=== PATIENT | male | born 1995 | race Caucasian/White ===

== ENCOUNTER 2017-10-28 06:24 | Day surgery (SDC) | payer OTHER ==
[2017-10-27 13:13] VITALS: BMI 27.2
--- NOTE | 2017-10-27 17:14 | HP ---
DATE OF ADMISSION: 10/28/2017 DATE OF SURGERY: 10/28/2017 ADMISSION DIAGNOSIS: Chronic sinusitis. HISTORY OF PRESENT ILLNESS: This 22-year-old male has had history of chronic sinus symptoms which have failed to improve with appropriate medical therapy. He does report history of nasal congestion with some mouth breathing. He does also report childhood nasal trauma. He has headache and postnasal drainage as well as purulent nasal drainage and anosmia. He has not responded well to medical management. CT scan demonstrates an opacified and expanded right maxillary sinus which protrudes into the right nasal cavity, as well as some ethmoid disease. He is now admitted for endoscopic sinus surgery to address these problems. PAST MEDICAL HISTORY: Primary medical doctor is Dr. Rula Franklin. There are no previous operations and no previous general anesthesia. Bleeding history is negative. FAMILY HISTORY: Negative for bleeding or anesthesia problems. Patient has hair thinning and borderline blood pressure elevation. There is also history of nasal allergies. ALLERGIES TO MEDICATIONS: None. He does not smoke. There is a history of second-hand smoke exposure. PHYSICAL EXAMINATION: General: Patient is a well-developed male in no distress. HEENT: Head is normal. Eyes are clear. Ears are unremarkable. The nasal cavities show minimal septal deviation. There is mucosal edema and narrowing of the middle meatus on the right side as well as edema of the turbinate. DATA: Preoperative labs are pending. There is no anemia, but the MCV is slightly low, PCP suspects probable thalassemia. CT scan of the paranasal sinuses is abnormal with significant right maxillary sinus disease. IMPRESSION: Chronic maxillary and ethmoid sinusitis. PLAN: Endoscopic sinus surgery. INFORMED CONSENT: Patient and his father understand the indications, alternatives, nature, risks, and benefits of proposed surgery. Potential complications including, but not limited to, anesthesia, bleeding, infection, recurrence, numbness, reduced smell sense, eye injury or brain injury discussed in detail. He understands and accepts these risks and wishes to proceed with surgery. Questions are answered fully. MANDY ONEILL M.D. KENIA/[id number] MTDD
[~2017-10-28 06:24] MED LIST: ceFAZolin SODIUM 1 GM VIAL IVPB ONE
[2017-10-28] MEDS ORDERED: fentaNYL CITRATE 250 MCG/5 ML VIAL ONE (07:04)
[2017-10-28] MEDS ORDERED: SUCCINYLCHOLINE CHLORIDE 200 MG/10 ML VIAL ONE (07:04)
[2017-10-28] MEDS ORDERED: ROCURONIUM BROMIDE 50 MG/5 ML VIAL ONE (07:04)
[2017-10-28] MEDS ORDERED: MIDAZOLAM HCL 2 MG/2 ML SINGLE DOSE VIAL ONE (07:04)
[2017-10-28] MEDS ORDERED: LIDOCAINE HCL/PF 2% SDV 5ML VIAL ONE (07:04)
[2017-10-28] MEDS ORDERED: DEXAMETHASONE SOD PHOSPHATE 4 MG/1 ML VIAL ONE (07:04)
[2017-10-28] MEDS ORDERED: PROPOFOL 20 ML ONE (07:04)
[2017-10-28] MEDS ORDERED: COCAINE HCL 4% TOPICAL SOLUTION 4 ML BOTTLE TP ONE ×3 (07:10→09:10)
--- NOTE | 2017-10-28 07:50 | HP ---
History & Physical Update - History History: No Change - Physical Physical: No Change - Assessment Assessment: No Change - Plan Plan: No Change
[2017-10-28] MEDS ORDERED: GLYCOPYRROLATE 0.2 MG/1 ML VIAL ONE (09:11)
[2017-10-28] MEDS ORDERED: NEOSTIGMINE METHYLSULFATE 0.5 MG/ML - 10 ML MDV ONE (09:11)
[2017-10-28] MEDS ORDERED: TRIMETHOBENZAMIDE HCL 200MG/2ML INJ IM PRN (09:25)
[2017-10-28] MEDS ORDERED: oxyCODONE HCL 5 MG TABLET PO PRN ×2 (09:25→10:46)
[2017-10-28] MEDS ORDERED: ACETAMINOPHEN 325 MG TABLET (FP) PO PRN (09:25)
--- NOTE | 2017-10-28 09:25 | OP ---
Operative Note - Note: Operative Date: 10/28/17 ([id number]) Pre-Operative Diagnosis: chronic maxillary sinusitis Operation: right endoscopic ethmoidectomy, anterior,. right endoscopic maxilary antrostomy with removal of tissue,. image guidance Findings: markedly expanded right maxillary sinus bulging into nasal cavity with significant mucopus Implants: none Post-Operative Diagnosis: Same as Pre-op Surgeon: Declan Barron Anesthesiologist/RIPSAW GRADER: Sergei Rodriguez Anesthesia: General Specimens Removed: right maxillary and ethmoid sinus Estimated Blood Loss (mls): 15 Blood Volume Replaced (mls): 0 Operative Report Dictated: Yes
[2017-10-28] MEDS ORDERED: LACTATED RINGERS SOLUTION 1,000 ML IV SCH (09:30)
[2017-10-28] MEDS ORDERED: ONDANSETRON 4 MG/2 ML VIAL IVPUSH ONE (10:15)
[2017-10-28] MEDS ORDERED: PROMETHAZINE HCL 25 MG/1 ML VIAL IVPUSH ONE ×2 (10:30→11:51)
[2017-10-28] MEDS ORDERED: ONDANSETRON 4 MG/2 ML VIAL IVPUSH PRN (10:46)
[2017-10-28] MEDS ORDERED: ONDANSETRON 4 MG/2 ML VIAL ONE (10:59)
[2017-10-28] MEDS ORDERED: PROMETHAZINE HCL 25 MG/1 ML VIAL ONE (11:28)
[2017-10-28 12:43] VITALS: TEMP 98.4
--- NOTE | 2017-10-28 12:52 | OP ---
DATE OF OPERATION: 10/28/2017 PREOPERATIVE DIAGNOSIS: Chronic maxillary sinusitis with expansion of sinus and nasal obstruction. POSTOPERATIVE DIAGNOSIS: Chronic maxillary sinusitis with expansion of sinus and nasal obstruction. PROCEDURE PERFORMED: Right endoscopic ethmoidectomy, anterior right endoscopic maxillary antrostomy with removal of tissue, image guidance. SURGEON: Mandy Barron MD ANESTHESIOLOGIST: Sergei Rodriguez CRNA ANESTHESIA: General via endotracheal tube. INDICATIONS: This 22-year-old male had long-standing nasal obstructive symptoms with discomfort. He had failed to improve with appropriate medical therapy. CT scan demonstrates a completely opacified right maxillary sinus with expansion medially into the nasal cavity. He is now brought to surgery for treatment. FINDINGS: Obstruction of the right nasal cavity by expanded medial wall of maxillary sinus, thickened and inflamed mucosa, significant pus and mucus within the maxillary sinus with diseased tissue. DESCRIPTION OF PROCEDURE: The patient was brought to the operating room and placed on the operating table in the supine position. General endotracheal anesthesia was induced to a satisfactory level. He was prepped and draped in the usual fashion for surgery. Cocaine 4% was placed within the right nasal cavities. The Plored image guidance system was utilized with the patient's CT scan data. He was registered, and the system was used intermittently throughout the case to identify anatomic landmarks and guide dissection. The pledgets were removed. A nasal endoscopy was performed with a 0-degree telescope. Significant bulging of the lateral wall of the nasal cavity was identified. There was also diffusely inflamed mucosa. Lidocaine with epinephrine 1:200,000 was infiltrated into the lateral nasal wall and the middle meatus, as well as the uncinate process. Additional cocaine 4% was placed for vasoconstriction. Palpation demonstrated very soft tissue in the area of bulging. Mucus and pus emanated from the maxillary ostium out of the middle meatus with injection and palpation. An area was cauterized to minimize bleeding and then incised with a sickle knife and opened with the up-biting forceps. Significant mucopus was encountered. Cultures were sent to Microbiology. The medial wall was then excised with the Xomed microdebrider. In addition, the uncinate process was removed and a limited anterior ethmoidectomy was performed in order to clear the area around the natural ostium. The middle turbinate was red and inflamed, but was left undisturbed. The inferior of the maxillary sinus was then visualized with the 70-degree scope. Significant pus was encountered. This was suctioned fully. Giraffe forceps were used to remove diseased tissue from the posterior and base of the sinus. The sinus was then irrigated copiously with saline and suctioned dry. All accessible abnormal tissue was removed. Final inspection demonstrated some mild oozing. Suction cautery was utilized along the edges of the antrostomy to minimize bleeding. NasoPore dressing was placed. The throat pack that had been placed at the beginning of the case was then removed. A small moustache dressing was placed. The patient tolerated the procedure well. He was then awakened from general anesthesia and transferred to the PACU in stable condition. Estimated blood loss was 15 mL. He received crystalloid at the end of the procedure. Right ethmoid and maxillary sinus tissue was sent to Pathology for routine studies. There were no complications. MANDY BARRON M.D. [id number]
[2017-10-28 15:15] VITALS: BP 108/60; PULSE 68
--- NOTE | 2017-10-29 18:03 | PATH ---
Surgical Pathology Report Patient Name: GENARO MANTILLA [facility]. Rec. #: [id number] /Age/Gender: 1995 (Age: 22) / M Account: [id number] Location: [facility] SURGICAL Taken: 10/28/2017 Received: 10/28/2017 Reported: 10/29/2017 Physicians: Declan Barron M.D. Specimen(s) Received RIGHT MAXILLARY SINUS TISSUE Clinical History Deviated septum, chronic sinusitis Final Diagnosis MAXILLARY SINUS TISSUE, RIGHT, MAXILLARY ANTROSTOMY WITH TISSUE REMOVAL AND ANTERIOR ETHMOIDECTOMY: FRAGMENTS OF RESPIRATORY MUCOSA WITH EDEMA, HEMORRHAGE, FOCAL FIBROSIS, AND CHRONIC SINUSITIS. Electronically Signed Rosemary Grayson M.D. Gross Description Received in formalin labeled "right maxillary sinus tissue," is a 4.0 x 3.2 x 0.4 cm aggregate of henry-red soft tissue fragments. The specimen is entirely submitted in 2 cassettes. DL/10/28/2017 saudi/10/28/2017
== END 2017-10-28 14:55 | disposition home or self-care (01) ==
LOC: JASU-SURG 06:24
PROVIDERS: ATTEND Otolaryngology
PROC: 09DU4ZZ Extraction of Right Ethmoid Sinus, Percutaneous Endoscopic Approach (ICD-10-PCS; 2017-10-28)
PROC: 8E09XBZ Computer Assisted Procedure of Head and Neck Region (ICD-10-PCS; 2017-10-28)
PROC: 8E09XBZ Computer Assisted Procedure of Head and Neck Region (ICD-10-PCS; principal; 2017-10-28 08:00)
DX: J32.0 Chronic maxillary sinusitis (principal); J34.89 Other specified disorders of nose and nasal sinuses
CPT/HCPCS: 87070; 87102; 87205; 87210; 88304-TC; 94760